=== PATIENT | female | born 1960 | race Caucasian/White ===

== ENCOUNTER 2018-08-03 07:43 | Outpatient (CLI) | payer BC ==
[2013-06-26 11:44] VITALS: BMI 20.5
[~2018-08-03 07:43] MED LIST: ANASTROZOLE1 MG PO; DEMEROL50 MG PO; EFFEXOR25 MG PO; HYDROCHLOROTH12.5 M1 PO; K-DUR20 MEQ PO; XANAX0.5 MG PO; ZOFRAN4 MG PO
== END 2018-08-03 23:59 | disposition home or self-care (01) ==
LOC: D.MAMMO 07:43
DX: Z85.3 Personal history of malignant neoplasm of breast (principal)

== ENCOUNTER 2020-02-13 14:30 | Outpatient (CLI) | payer SELFPAY ==
[2013-06-26 11:44] VITALS: BMI 20.5
== END 2020-02-13 15:30 | disposition home or self-care (01) ==
LOC: D.MAMMO 14:30
PROVIDERS: ATTEND Family Medicine
DX: Z12.31 Encounter for screening mammogram for malignant neoplasm of breast (principal)